=== PATIENT | female | born 1975 ===

== ENCOUNTER 2017-08-26 12:00 | Emergency (ER) | payer SELFPAY ==
[2017-08-26 12:04] VITALS: BMI 27.3
[2017-08-26 12:09] VITALS: TEMP 98.3; O2SAT 99
[2017-08-26] MEDS ORDERED: TDAP Vaccine 0.5 mL Syr IM ONE (13:18)
--- NOTE | 2017-08-26 13:23 | ED PDOC ---
Arrival/HPI - General Chief Complaint: Finger,Hand,&Wrist Time Seen by Provider: 08/26/17 12:07 Historian: Patient - History of Present Illness Narrative History of Present Illness (Text): 08/26/17 13:20 42-year-old female presents today with a laceration to the right fifth finger status post injury. Patient states she was washing a glass today when the glass broke and the patient cut her hand on the broken part of the glass. Patient denies foreign body sensation. Patient unsure of her last tetanus shot. Patient states she has pain to the laceration site as well as a slight numbness to the lateral aspect of the right fifth finger. No medications have been taken for pain. Incident occurred prior to arrival. Patient denies numbness weakness or decreased range of motion of the finger/hand. No other complaints. Past Medical History - Provider Review Nursing Documentation Reviewed: Yes - Travel History Have you recently traveled outside [place] w/in the past 3 mons?: No - Infectious Disease Hx of Infectious Diseases: None - Tetanus Immunization Tetanus Immunization: Unknown - Cardiac Hx Cardiac Disorders: No - Pulmonary Hx Respiratory Disorders: No - Neurological Hx Neurological Disorder: No - HEENT Hx HEENT Disorder: No - Renal Hx Renal Disorder: No - Endocrine/Metabolic Hx Endocrine Disorders: No - Hematological/Oncological Hx Blood Disorders: No - Integumentary Hx Dermatological Disorder: No - Musculoskeletal/Rheumatological Hx Osteoarthritis: Yes - Gastrointestinal Hx Gastrointestinal Disorders: No - Genitourinary/Gynecological Hx Genitourinary Disorders: No - Psychiatric Hx Psychophysiologic Disorder: No Hx Substance Use: No - Anesthesia Hx Anesthesia: No Family/Social History - Physician Review Nursing Documentation Reviewed: Yes Family/Social History: Unknown Family HX Smoking Status: Never Smoked Hx Alcohol Use: No Hx Substance Use: No Allergies/Home Meds Allergies/Adverse Reactions: Allergies No Known Allergies Allergy (Verified 08/26/17 12:04) Review of Systems - Review of Systems Constitutional: absent: Fatigue, Fevers Respiratory: absent: SOB, Cough Cardiovascular: absent: Chest Pain, Palpitations Gastrointestinal: absent: Abdominal Pain, Nausea Genitourinary Female: absent: Dysuria, Frequency Musculoskeletal: Arthralgias Skin: Laceration Neurological: absent: Headache, Dizziness Psychiatric: absent: Anxiety, Depression Physical Exam Vital Signs Reviewed: Yes Vital Signs Temp Pulse Resp BP Pulse Ox 08/26/17 12:05 98.3 F 66 18 97/56 L 99 Temperature: Afebrile Blood Pressure: Normal Pulse: Regular Respiratory Rate: Normal Appearance: Positive for: Well-Appearing, Non-Toxic, Comfortable Pain Distress: None Mental Status: Positive for: Alert and Oriented X 3 - Systems Exam Head: Present: Atraumatic Mouth: Present: Moist Mucous Membranes Neck: Present: Normal Range of Motion Respiratory/Chest: Present: Clear to Auscultation, Good Air Exchange. No: Respiratory Distress, Accessory Muscle Use Cardiovascular: Present: Regular Rate and Rhythm, Normal S1, S2. No: Murmurs Upper Extremity: Present: Normal ROM, NORMAL PULSES, Tenderness (right hand; along the dorsal aspect of the fifth finger at the level of theMCP there is a 2cm linear laceration extending toward the medial aspect of the finger; full rom of finger;distal pulses intact; there is a slight decrease in sensation across the medial aspect of the 5th finger. cap refill <2. ), Capillary Refill < 2s. No: Swelling, Erythema, Neurovascularly Intact, Deformity Neurological: Present: GCS=15, Speech Normal Skin: Present: Warm, Dry Psychiatric: Present: Alert, Oriented x 3 Medical Decision Making ED Course and Treatment: 08/26/17 13:25 Patient is nontoxic well appearing in no distress. Vital signs are stable. pt with laceration to hand after cutting finger with a broken glass cup. Wound irrigated well with high pressure irrigation Tetanus updated keflex po Laceration repair: 4 sutures placed Bacitracin and dressing applied, finger splint applied. Patient was advised to keep the wound clean and dry, apply bacitracin twice daily. Advised to return immediately if signs of infection develop or return if any other concerning symptoms develop. pt was advised to f/u with hand specialist regarding decreased sensation. Patient verbalizes understanding of discharge instructions and need for immediate followup. all aspects of this case were discussed the attending of record. Impression: Laceration, finger Motrin every 6 hours as needed for pain Keflex; 1 capsule 4 times daily x 7 days Keep the wound clean and dry, apply bacitracin twice daily Return in 10 days for suture removal Return immediately if signs of infection develop: High fevers, increasing pain, redness, swelling, purulent discharge Follow up with the hand specialist within the next 2 days. Followup with primary care physician within the next 2 days Return if any other concerning symptoms develop - Medication Orders Current Medication Orders: Discontinued Medications Cephalexin Monohydrate (Keflex) 500 mg PO STAT STA PRN Reason: Protocol Stop: 08/26/17 13:19 Last Admin: 08/26/17 13:30 Dose: 500 mg Tetanus/Reduced Diphtheria/Acell Pertussis (Boostrix Vaccine Inj) 0.5 ml IM .ONCE ONE Stop: 08/26/17 13:19 Last Admin: 08/26/17 13:31 Dose: 0.5 ml MAR Immunization Data Document 08/26/17 13:31 LA (Rec: 08/26/17 13:31 LA [id number]) Immunization Data Vaccine Information Sheet Given Yes Immunization Registry Document 08/26/17 13:31 LA (Rec: 08/26/17 13:31 LA [id number]) Immunization Registry Consent Date 08/19/17 Procedure: Wound Repair - Procedure Procedure: Wound Repair: laceration, finger - Consent Obtained Consent obtained: Verbal - Performed by Performed by: Mid-level Provider - Indications Indication(s):: Laceration - Location Finger:: Right, Little Shape:: Linear Dimensions Length cm: 2cm Depth:: Epidermis - Anesthetic Technique Anesthetic Technique: Local (1cc) Local/Regional Anesthetic:: Lidocaine 1% - Debris Debris:: None - Irrigated Irrigated with ml of normal saline: copious amounts of NS using high pressure irrigation - Complexity Complexity:: Simple (one layer) - Wound repair method Sutures:: # (4), Size (4.0), Type (nylon), Technique (interrupted) - Complications Complications: NONE - Patient tolerated procedure Patient Tolerated Procedure:: Well Disposition/Present on Arrival - Present on Arrival Any Indicators Present on Arrival: No History of DVT/PE: No History of Uncontrolled Diabetes: No Urinary Catheter: No History of Decub. Ulcer: No History Surgical Site Infection Following: None - Disposition Have Diagnosis and Disposition been Completed?: Yes Diagnosis: Finger laceration Disposition: HOME/ ROUTINE Disposition Time: 14:53 Patient Plan: Discharge Condition: GOOD Discharge Instructions (ExitCare): Laceration Repair Additional Instructions: Motrin every 6 hours as needed for pain Keflex; 1 capsule 4 times daily x 7 days Keep the wound clean and dry, apply bacitracin twice daily Return in 10 days for suture removal Return immediately if signs of infection develop: High fevers, increasing pain, redness, swelling, purulent discharge Follow up with the hand specialist within the next 2 days. Followup with primary care physician within the next 2 days Return if any other concerning symptoms develop Prescriptions: Cephalexin [Keflex] 500 mg PO QID #28 capsule Referrals: Dionna Causey APN [Primary Care Provider] - Follow up with primary Alonzo Tejeda MD [Staff Provider] - Follow up with primary Forms: [facility] (Burmese), WORK NOTE
[2017-08-26] MEDS ORDERED: Lidocaine 1% Inj (20ml) ONE (13:50)
[2017-08-26 15:19] VITALS: BP 100/60; PULSE 70; RESP 19
== END 2017-08-26 15:20 | disposition home or self-care (01) ==
LOC: ED 12:00
DX: S61.216A Laceration without foreign body of right little finger without damage to nail, initial encounter (principal); W25.XXXA Contact with sharp glass, initial encounter; Z23 Encounter for immunization

== ENCOUNTER 2017-09-05 17:18 | Emergency (ER) | payer SELFPAY ==
[2017-09-05 17:19] VITALS: BMI 27.3
--- NOTE | 2017-09-05 17:22 | ED PDOC ---
Arrival/HPI - General Time Seen by Provider: 09/05/17 17:20 Historian: Patient - History of Present Illness Narrative History of Present Illness (Text): 09/05/17 17:20 42 y/o female, here for the suture removal s/p sutured about 10 days ago. Pt. stated that the rt. hand region healing well and dry, no fever or chills, no night sweat, no difficulty moving the laceration side on the rt. hand 5 digits. Past Medical History - Provider Review Nursing Documentation Reviewed: Yes - Infectious Disease Hx of Infectious Diseases: None - Tetanus Immunization Tetanus Immunization: Unknown - Cardiac Hx Cardiac Disorders: No - Pulmonary Hx Respiratory Disorders: No - Neurological Hx Neurological Disorder: No - HEENT Hx HEENT Disorder: No - Renal Hx Renal Disorder: No - Endocrine/Metabolic Hx Endocrine Disorders: No - Hematological/Oncological Hx Blood Disorders: No - Integumentary Hx Dermatological Disorder: No - Musculoskeletal/Rheumatological Hx Osteoarthritis: Yes - Gastrointestinal Hx Gastrointestinal Disorders: No - Genitourinary/Gynecological Hx Genitourinary Disorders: No - Psychiatric Hx Psychophysiologic Disorder: No Hx Substance Use: No - Anesthesia Hx Anesthesia: No Family/Social History - Physician Review Nursing Documentation Reviewed: Yes Family/Social History: Unknown Family HX Smoking Status: Never Smoked Hx Alcohol Use: No Hx Substance Use: No Allergies/Home Meds Allergies/Adverse Reactions: Allergies No Known Allergies Allergy (Verified 09/05/17 17:29) Home Medications: Home Meds Medication Instructions Recorded Confirmed No Known Home Med 09/05/17 09/05/17 Review of Systems - Review of Systems Constitutional: absent: Fatigue, Fevers Respiratory: absent: SOB, Cough Cardiovascular: absent: Chest Pain Gastrointestinal: absent: Abdominal Pain, Diarrhea, Nausea, Vomiting Skin: Laceration. absent: Rash, Pruritis Psychiatric: absent: Anxiety, Depression Physical Exam Temperature: Afebrile Blood Pressure: Normal Pulse: Regular Respiratory Rate: Normal Appearance: Positive for: Well-Appearing, Non-Toxic, Comfortable Pain Distress: None Mental Status: Positive for: Alert and Oriented X 3 - Systems Exam Head: Present: Atraumatic, Normocephalic Pupils: Present: PERRL Extroacular Muscles: Present: EOMI Neck: Present: Normal Range of Motion Respiratory/Chest: Present: Clear to Auscultation, Good Air Exchange. No: Respiratory Distress, Accessory Muscle Use Cardiovascular: Present: Regular Rate and Rhythm, Normal S1, S2. No: Murmurs Abdomen: No: Tenderness, Distention, Peritoneal Signs Back: Present: Normal Inspection Upper Extremity: Present: Normal Inspection, Other (Rt. hand lateral region visible 4 nylon sutures noted with the wound healed but the scar noted, no oozing or discharge, no cellulitis or streaking/ulcers. ). No: Cyanosis, Edema Lower Extremity: Present: Normal Inspection. No: Edema Neurological: Present: GCS=15, Speech Normal, Motor Func Grossly Intact, Gait Normal, Memory Normal Skin: Present: Warm, Dry, Normal Color. No: Rashes Psychiatric: Present: Alert, Oriented x 3, Normal Insight, Normal Concentration Medical Decision Making ED Course and Treatment: 09/05/17 17:32 -4 sutures removed with success, no more sutures remain, wound completely healed. -Discharge home with education on follow up with your own pmd within 2 days, return to the ER for any new or worsening signs or symptoms. - PA / DAIRY ASSOCIATE / Resident Statement MD/DO has reviewed & agrees with the documentation as recorded. Disposition/Present on Arrival - Present on Arrival Any Indicators Present on Arrival: No History of DVT/PE: No History of Uncontrolled Diabetes: No Urinary Catheter: No History of Decub. Ulcer: No History Surgical Site Infection Following: None - Disposition Have Diagnosis and Disposition been Completed?: Yes Diagnosis: Encounter for removal of sutures Disposition: HOME/ ROUTINE Disposition Time: 17:33 Patient Plan: Discharge Condition: GOOD Additional Instructions: -Discharge home with education on follow up with your own pmd within 2 days, return to the ER for any new or worsening signs or symptoms. Referrals: [facility] at [facility] [place] [Outside] - Follow up with primary Forms: WORK NOTE
[2017-09-05 17:56] VITALS: BP 105/65; PULSE 85; RESP 18; TEMP 98; O2SAT 99
== END 2017-09-05 17:45 | disposition home or self-care (01) ==
LOC: ED 17:18
DX: Z48.02 Encounter for removal of sutures (principal)

== ENCOUNTER 2018-08-03 08:59 | Outpatient (CLI) | payer OTHER | END 2018-08-03 09:00 | disposition home or self-care (01) | LOC: LAB 08:59 ==